=== PATIENT | male | born 1995 | race African-American/Black ===

== ENCOUNTER 2017-07-24 11:35 | Emergency (ER) | payer OTHER | END 2017-07-24 11:56 | disposition home or self-care (01) | LOC: E/R 11:35 | DX: Z76.0 Encounter for issue of repeat prescription (principal); J45.909 Unspecified asthma, uncomplicated | CPT/HCPCS: 99281; Z7502 ==

== ENCOUNTER 2017-08-16 00:40 | Emergency (ER) | payer SELFPAY, OTHER ==
[2017-08-16] MEDS: LEVALBUTEROL (NEB) 1.25 MG/0.5 ML AMP INH (01:38)
[2017-08-16] MEDS: IPRATROPIUM (NEB) 0.5 MG/2.5 ML AMP INH (01:38)
[2017-08-16] MEDS: SOD CHLORIDE 0.9% 1,000 ML IV ×2 (02:04→03:02)
[2017-08-16] MEDS: METHYLPREDNISOLONE 125 MG INJ IV (02:37)
== END 2017-08-16 07:46 | disposition home or self-care (01) ==
LOC: E/R 00:40
DX: J45.901 Unspecified asthma with (acute) exacerbation (principal)
CPT/HCPCS: 71045; 94644; 96374; 99284-25

== ENCOUNTER 2017-10-12 00:35 | Emergency (ER) | payer SELFPAY | END 2017-10-12 02:05 | disposition left against medical advice (07) | LOC: FTE 00:35 | DX: Z53.21 Procedure and treatment not carried out due to patient leaving prior to being seen by health care provider (principal) ==

== ENCOUNTER 2017-11-21 09:36 | Emergency (ER) | payer SELFPAY | END 2017-11-21 21:29 | disposition home or self-care (01) | LOC: E/R 21:29 | DX: Z76.0 Encounter for issue of repeat prescription (principal); J45.909 Unspecified asthma, uncomplicated | CPT/HCPCS: 99281 ==

== ENCOUNTER 2018-02-01 10:40 | Emergency (ER) | payer OTHER | END 2018-02-01 12:01 | disposition home or self-care (01) | LOC: FTE 10:40 | DX: Z76.0 Encounter for issue of repeat prescription (principal); J45.909 Unspecified asthma, uncomplicated | CPT/HCPCS: 99281 ==